=== PATIENT | female | born 1980 | race Caucasian/White ===

== ENCOUNTER 2017-03-05 04:52 | Inpatient (IN) | payer MEDICARE ==
[2017-03-05] VITALS (9 sets, daily range): BP systolic 105–136; BP diastolic 66–90; PULSE 103–142; RESP 16–20; TEMP 97.7–101.8; O2SAT 98–100
[~2017-03-05] VITALS: Ht 170.2 cm; Wt 58.3 kg
[2017-03-05] MEDS ORDERED: CHOL1CAP14 PO (05:24)
[2017-03-05] MEDS ORDERED: ASCO500C PO (05:24)
[2017-03-05] MEDS ORDERED: LOPE2CAP PO (05:24)
[2017-03-05] MEDS ORDERED: LEVO75TA3 PO (05:24)
[2017-03-05] MEDS ORDERED: HYDR-3580 PO (05:24)
[2017-03-05] MEDS ORDERED: CLON1TAB PO (05:24)
[2017-03-05] MEDS ORDERED: BACL20TA PO (05:24)
[2017-03-05] MEDS ORDERED: ONETAB13 PO (05:24)
[2017-03-05] MEDS ORDERED: TIZA4CAP3 PO (05:24)
[2017-03-05] MEDS ORDERED: ESCI20TA PO (05:24)
[2017-03-05] MEDS ORDERED: ONDANSETRON HCL 4 MG/2 ML VIAL IV ONE (05:30)
[2017-03-05] MEDS ORDERED: SODIUM CHLOR 0.9% 1000 ML INJ 1,000 ML IV ONE ×2 (05:30→06:15)
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
[2017-03-05 05:38] LABS: AUTOMATED NEUTROPHIL # 15.1 TH/MM3 (1.8-7.7); BASOPHIL % 0.2 % (0.0-2.0); EOSINOPHIL # 0.1 TH/MM3 (0-0.4); EOSINOPHIL % 0.9 % (0.0-4.0); HEMATOCRIT 46.2 % (35.0-46.0); HEMO FLAGS DIFF FINAL; LYMPHOCYTE # 0.9 TH/MM3 (1.0-4.8); MEAN CORPUSCULAR HEMOGLOBIN 29.9 PG (27.0-34.0); MEAN CORPUSCULAR HGB CONC 33.6 % (32.0-36.0); MONO % 5.1 % (0.0-8.0); NEUT % 88.8 % (16.0-70.0); PLATELET COUNT 396 TH/MM3 (150-450); RED CELL DISTRIBUTION WIDTH 14.4 % (11.6-17.2)
[2017-03-05 05:48] LABS: APTT (PATIENT) 25.9 SEC (24.3-30.1); INTERNATIONAL NORMALIZED RATIO 0.9 RATIO
--- NOTE | 2017-03-05 06:02 | RADRPT ---
EXAM DATE/TIME: 03/05/2017 05:54 [facility] COMPARISON: No previous studies available for comparison. INDICATIONS : Abdominal pain. MEDICAL HISTORY : None. SURGICAL HISTORY : None. ENCOUNTER: Initial ACUITY: 1 day PAIN SCORE: 0/10 LOCATION: Bilateral chest FINDINGS: A single AP semierect view of the chest was obtained and demonstrates no focal consolidation or effus ion. There are posterior spinal fixation rods in place. The heart size is at the upper limits of norm al. The bony thorax is intact with overlying electrocardiogram leads. CONCLUSION: No acute disease. Juan Lowry MD on March 05, 2017 at 5:59 Board Certified Radiologist. This report was verified electronically.
[2017-03-05 06:06] LABS: BACTERIA, URINE RARE /hpf; BLOOD, URINE NEG (NEG); COMMENT (UR) CULTURE INDICATED; CULTURE IF INDICATED CULTURE INDICATED; GLUCOSE,URINE NEG (NEG); HYALINE CAST, URINE 5 /lpf (RARE); KETONE, URINE TRACE mg/dL (NEG); MUCUS URINE FEW /lpf (OCC); NITRITE,URINE NEG (NEG); RENAL EPITHELIAL CELLS 3 /hpf; SQUAMOUS EPITHELIAL CELL URINE 2 /hpf (0-5); URINE COLOR YELLOW (YELLW/STRAW)
[2017-03-05] MEDS ORDERED: PIPERACIL-TAZO 3.375 GM PREMIX 50 ML IV ONE (06:15)
[2017-03-05] MEDS ORDERED: VANCOMYCIN INJ 1,000 MG in SODIUM CHLOR 0.9% 250 ML INJ 250 ML IV ONE (06:15)
[2017-03-05 06:39] LABS: ALT (GPT) 31 U/L (10-53); ANION GAP 7 MEQ/L (5-15); AST (GOT) 30 U/L (15-37); BICARBONATE 24.6 MEQ/L (21.0-32.0); BLOOD UREA NITROGEN 10 MG/DL (7-18); CHLORIDE 110 MEQ/L (98-107); GLOMERULAR FILTRATION RATE 118 ML/MIN (>89); MAGNESIUM 1.9 MG/DL (1.5-2.5); SODIUM (NA) 142 MEQ/L (136-145)
[2017-03-05 06:45] LABS: ALKALINE PHOSPHATASE 72 U/L (45-117)
[2017-03-05 06:47] LABS: TOTAL BILIRUBIN ADULT 0.6 MG/DL (0.2-1.0)
[2017-03-05] MEDS ORDERED: IOHEXOL 350 MG/ML 10 ML VIAL (for RAD DIAG) IV ONE (06:58)
--- NOTE | 2017-03-05 07:08 | PD ---
Physical Exam Date Seen by Provider: March 05, 2017 Time Seen by Provider: 07:06 Narrative The patient was signed out to me by Dr. Fischer. We're awaiting a CT result. This is a 37-year-old female with a history of partial quadriplegia, who presents here with 7+ episodes of vomiting. The patient has pyuria on exam. She been started on antibiotics and had cultures ordered. CT scan was ordered to rule out bowel findings. The patient has had a previous bowel obstruction with ischemic bowel secondary to the obstruction. Lactic acid and CT scan were pending at the time of signout. Data Data Last Documented VS Vital Signs Date Time Temp Pulse Resp B/P Pulse Ox O2 Delivery O2 Flow Rate FiO2 03/05/17 07:05 105 20 123/75 99 Room Air 03/05/17 04:54 97.7 Orders Complete Blood Count With Diff (03/05/17 05:20) Comprehensive Metabolic Panel (03/05/17 05:20) Prothrombin Time / Inr (Pt) (03/05/17 05:20) Act Partial Throm Time (Ptt) (03/05/17 05:20) Lipase (03/05/17 05:20) Urinalysis - C+S If Indicated (03/05/17 05:20) Magnesium (Mg) (03/05/17 05:20) Chest, Single Ap (03/05/17 05:20) Ct Abd/Pel W Iv Contrast(Rout) (03/05/17 05:20) Iv Access Insert/Monitor (03/05/17 05:20) Ecg Monitoring (03/05/17 05:20) Oximetry (03/05/17 05:20) Urinary Catheter Insert/Apply (03/05/17 05:20) Ed Urine Pregnancytest Poc (03/05/17 05:20) Sodium Chlor 0.9% 1000 Ml Inj (Ns 1000 M (03/05/17 05:30) Ondansetron Inj (Zofran Inj) (03/05/17 05:30) Urine Culture (03/05/17 05:15) Blood Culture (03/05/17 06:12) Sodium Chlor 0.9% 1000 Ml Inj (Ns 1000 M (03/05/17 06:15) Lactic Acid Sepsis Protocol (03/05/17 06:12) Piperacil-Tazo 3.375 Gm Premix (Zosyn 3. (03/05/17 06:15) Vancomycin Inj (Vancomycin Inj) (03/05/17 06:15) Iohexol 350 Inj (Omnipaque 350 Inj) (03/05/17 06:58) Hydromorphone Pf Inj (Dilaudid Pf Inj) (03/05/17 07:45) Admit Order (Ed Use Only) (03/05/17 08:53) Labs Laboratory Tests Test 03/05/17 03/05/17 03/05/17 03/05/17 05:15 05:25 06:15 06:20 Urine Color YELLOW Urine Turbidity HAZY Urine pH 5.0 Urine Specific [place] 1.027 Urine Protein TRACE mg/dL Urine Glucose (UA) NEG mg/dL Urine Ketones TRACE mg/dL Urine Occult Blood NEG Urine Nitrite NEG Urine Bilirubin NEG Urine Urobilinogen LESS THAN 2.0 MG/DL Urine Leukocyte Esterase LARGE Urine RBC 11 /hpf Urine WBC 60 /hpf Urine Squamous Epithelial 2 /hpf Cells Urine Renal Epithelial Cells 3 /hpf Urine Bacteria RARE /hpf Urine Hyaline Casts 5 /lpf Urine Mucus FEW /lpf Microscopic Urinalysis Comment CULTURE INDICATED White Blood Count 17.0 TH/MM3 Red Blood Count 5.20 MIL/MM3 Hemoglobin 15.6 GM/DL Hematocrit 46.2 % Mean Corpuscular Volume 89.0 FL Mean Corpuscular Hemoglobin 29.9 PG Mean Corpuscular Hemoglobin 33.6 % Concent Red Cell Distribution Width 14.4 % Platelet Count 396 TH/MM3 Mean Platelet Volume 8.2 FL Neutrophils (%) (Auto) 88.8 % Lymphocytes (%) (Auto) 5.0 % Monocytes (%) (Auto) 5.1 % Eosinophils (%) (Auto) 0.9 % Basophils (%) (Auto) 0.2 % Neutrophils # (Auto) 15.1 TH/MM3 Lymphocytes # (Auto) 0.9 TH/MM3 Monocytes # (Auto) 0.9 TH/MM3 Eosinophils # (Auto) 0.1 TH/MM3 Basophils # (Auto) 0.0 TH/MM3 CBC Comment DIFF FINAL Differential Comment Prothrombin Time 10.0 SEC Prothromb Time International 0.9 RATIO Ratio Activated Partial 25.9 SEC Thromboplast Time Sodium Level 142 MEQ/L Potassium Level 4.0 MEQ/L Chloride Level 110 MEQ/L Carbon Dioxide Level 24.6 MEQ/L Anion Gap 7 MEQ/L Blood Urea Nitrogen 10 MG/DL Creatinine 0.58 MG/DL Estimat Glomerular Filtration 118 ML/MIN Rate Random Glucose 93 MG/DL Calcium Level 8.1 MG/DL Magnesium Level 1.9 MG/DL Total Bilirubin 0.6 MG/DL Aspartate Amino Transf 30 U/L (AST/SGOT) Alanine Aminotransferase 31 U/L (ALT/SGPT) Alkaline Phosphatase 72 U/L Total Protein 8.5 GM/DL Albumin 3.6 GM/DL Lipase 100 U/L Lactic Acid Level 1.5 mmol/L [facility] Medical Record Reviewed: Yes Supervised Visit with PRINCE: No Differential Diagnosis Pyelonephritis versus bowel obstruction versus diverticulitis Narrative Course 37-year-old female signed out to me at [address] Fischer. We are waiting the lactic acid and CT result. Lactic acid comes back at 1.5. CT result shows no evidence of acute surgical pathology. There is nonspecific bowel gas patterns. This would be consistent with her paraplegia history. The patient does have an elevated white count of 17,000 with 89% segs. She has pyuria. Working diagnosis is sepsis secondary to pyelonephritis. She'll be admitted to the [facility] hospitalist service. I spoke with Dr. Arturo Mason, hospitalist, who agrees with the admission. Diagnosis Primary Impression: Sepsis Additional Impressions: Abdominal pain Qualified Code: R10.30 - Lower abdominal pain Urinary tract infection Qualified Code: T83.511A - Urinary tract infection associated with catheterization of urinary tract, unspecified indwelling urinary catheter type, initial encounter Vomiting Qualified Code: R11.2 - Non-intractable vomiting with nausea, unspecified vomiting type Admitting Information Admitting Physician Requests: Admit Anthony Morales MD March 05, 2017 07:08
[2017-03-05] MEDS ORDERED: HYDROmorphone HCL PF 1 MG/ML VIAL IVS ONE (07:45)
--- NOTE | 2017-03-05 08:17 | RADRPT ---
EXAM DATE/TIME: 03/05/2017 06:54 [facility] COMPARISON: No previous studies available for comparison. INDICATIONS : Diffuse abdominal pain with nausea and vomiting. IV CONTRAST: 95 cc Omnipaque 350 (iohexol) IV ORAL CONTRAST: No oral contrast ingested. RADIATION DOSE: 5.68 CTDIvol (mGy) MEDICAL HISTORY : Bowel obstruction. SURGICAL HISTORY : Splenectomy. Colon resection. ENCOUNTER: Initial ACUITY: 1 day PAIN SCALE: 3/10 LOCATION: Bilateral abdomen TECHNIQUE: Volumetric scanning of the abdomen and pelvis was performed. Using automated exposure control and adjustment of the mA and/or kV according to patient size, radiation dose was kept as low as reasonably achievable to obtain optimal diagnostic quality images. FINDINGS: Patient has history of previous spine surgery, splenectomy and colon resection. Lung bases are clear. There is deformity of the right chest wall with multiple fractures evident. Moderate pectus excavatum is noted. The liver is free of focal defects. Spleen is surgically absent. Small spenule apparently is presen t in the right upper quadrant. Pancreas and adrenals are unremarkable. There is symmetrical renal function. There is moderate distention of both large and small bowel. The surgical clips are seen in the right lower quadrant. Dilated bowel extends down to the rectum where there is actually air fluid level pr esent in the rectum. There is a Dillon catheter in place with the bladder partially decompressed. Uterus is prominent. Th ere is a small 2.5 cm right adnexal mass. The abdominal wall is intact. There is no free air identified. Several small nodules are seen just beneath the anterior abdominal wall on the left, largest measuring 1.4 cm. Not sure what this is, th is could be splenosis given its location and appearance. There is no other evidence for adenopathy. Review of bone windows reveals evidence for a previous significant thoracic spine. There is scoliosi s with significant degenerative changes in the lumbar spine. Deformity is seen about the pelvis with degenerative changes about the right SI joint. CONCLUSION: Multiple nonspecific findings. There is generalized ileus evident more so involving what remains of the colon and small bowel and air fluid extending all the way down to the rectum. I do not seen an abscess. I do not see free air. I do not see any significant findings suggesting e tiology of patient's abdominal pain. Sammy Read MD FACR on March 05, 2017 at 7:27 Board Certified Radiologist. This report was verified electronically.
[2017-03-05] MEDS ORDERED: MAGNESIUM HYDROXIDE SUSP 30 ML CUP PO PRN (09:00)
[2017-03-05] MEDS ORDERED: SENNOSIDES 8.6 MG TAB PO PRN (09:00)
[2017-03-05] MEDS ORDERED: SODIUM CHLORIDE 0.9% FLUSH 10 ML FLUSH IV FLUSH PRN (09:00)
[2017-03-05] MEDS ORDERED: NALOXONE HCL 0.4 MG/ML AMP IV PRN (09:00)
[2017-03-05] MEDS: SODIUM CHLORIDE 0.9% FLUSH 10 ML FLUSH IV FLUSH SCH ×2 (09:18→20:39)
[2017-03-05] MEDS: SODIUM CHLOR 0.45% 1000 ML INJ 1,000 ML IV SCH ×2 (09:19→23:08)
[2017-03-05] MEDS: BACLOFEN 20 MG TAB PO SCH ×3 (12:17→23:07)
[2017-03-05] MEDS: PIPERACIL-TAZO 3.375 GM PREMIX 50 ML IV SCH ×2 (12:17→17:22)
[2017-03-05] MEDS ORDERED: BISACODYL EC 5 MG TABEC PO ONE (16:45)
[2017-03-05] MEDS ORDERED: MAGNESIUM HYDROXIDE SUSP 30 ML CUP PO ONE (16:45)
[2017-03-05] MEDS: clonazePAM 1 MG TAB PO SCH (17:24)
[2017-03-05] MEDS: ENOXAPARIN SODIUM 40 MG/0.4 ML SYRINGE SQ SCH (17:25)
[2017-03-05] MEDS ORDERED: BISACODYL 10 MG SUPP RECTAL PRN (21:15)
[2017-03-05] MEDS ORDERED: LIDOCAINE HCL 5% OINT 37 GM TUBE TOPICAL PRN (21:15)
[2017-03-05] MEDS ORDERED: ACETAMINOPHEN 325 MG TAB PO PRN (21:15)
[2017-03-05] MEDS ORDERED: ACETAMINOPHEN/HYDROcodone 325 MG/7.5 MG TAB PO PRN (23:45)
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
[2017-03-06 00:12] VITALS: BP 111/71; PULSE 133; RESP 18; TEMP 101.6; O2SAT 98
[2017-03-06] MEDS: PIPERACIL-TAZO 3.375 GM PREMIX 50 ML IV SCH ×5 (00:30→23:54)
[2017-03-06 04:00] VITALS: BP 105/58; PULSE 111; RESP 18; TEMP 98.7; O2SAT 97
[2017-03-06] MEDS: LEVOTHYROXINE SODIUM 75 MCG TAB PO SCH (06:12)
[2017-03-06 07:37] LABS: AUTOMATED NEUTROPHIL # 3.3 TH/MM3 (1.8-7.7); BASOPHIL % 0.8 % (0.0-2.0); EOSINOPHIL # 0.1 TH/MM3 (0-0.4); HEMATOCRIT 39.8 % (35.0-46.0); HEMO FLAGS DIFF FINAL; LYMPH % 30.4 % (9.0-44.0); LYMPHOCYTE # 1.8 TH/MM3 (1.0-4.8); MEAN CELL VOLUME 88.7 FL (80.0-100.0); MEAN CORPUSCULAR HEMOGLOBIN 29.2 PG (27.0-34.0); MEAN CORPUSCULAR HGB CONC 32.9 % (32.0-36.0); MONO % 10.9 % (0.0-8.0); NEUT % 56.9 % (16.0-70.0); PLATELET COUNT 297 TH/MM3 (150-450); RED BLOOD COUNT 4.48 MIL/MM3 (4.00-5.30); RED CELL DISTRIBUTION WIDTH 14.1 % (11.6-17.2); WHITE BLOOD COUNT 5.9 TH/MM3 (4.0-11.0)
[2017-03-06 08:12] LABS: ALKALINE PHOSPHATASE 64 U/L (45-117); ALT (GPT) 34 U/L (10-53); ANION GAP 9 MEQ/L (5-15); AST (GOT) 28 U/L (15-37); BICARBONATE 24.6 MEQ/L (21.0-32.0); BLOOD UREA NITROGEN 8 MG/DL (7-18); CHLORIDE 105 MEQ/L (98-107); GLOMERULAR FILTRATION RATE 147 ML/MIN (>89); SODIUM (NA) 139 MEQ/L (136-145); TOTAL BILIRUBIN ADULT 0.7 MG/DL (0.2-1.0)
[2017-03-06 08:19] LABS: POTASSIUM 2.8 MEQ/L (3.5-5.1)
[2017-03-06] MEDS: SODIUM CHLORIDE 0.9% FLUSH 10 ML FLUSH IV FLUSH SCH ×2 (08:29→21:00)
[2017-03-06] MEDS: clonazePAM 1 MG TAB PO SCH ×3 (08:30→16:27)
[2017-03-06] MEDS: BACLOFEN 20 MG TAB PO SCH ×4 (08:30→21:53)
[2017-03-06] MEDS: ESCITALOPRAM OXALATE 20 MG TAB PO SCH (08:30)
[2017-03-06] MEDS: CHOLECALCIFEROL (VIT D3) 5000 UNIT CAP PO SCH (08:31)
[2017-03-06 08:45] VITALS: PULSE 115; RESP 20; TEMP 97.7; O2SAT 95
[2017-03-06] MEDS: SODIUM CHLOR 0.45% 1000 ML INJ 1,000 ML IV SCH ×2 (10:57→23:55)
[2017-03-06 12:06] VITALS: BP 100/64; PULSE 108; RESP 20; TEMP 98; O2SAT 97
[2017-03-06] MEDS ORDERED: POTASSIUM CHLORIDE 20 MEQ CONTROLLED RELEASE TAB PO ONE (13:15)
[2017-03-06] MEDS: POTASSIUM CHLOR 10 MEQ PREMIX 100 ML IV SCH ×2 (13:46→15:15)
[2017-03-06] MEDS: ENOXAPARIN SODIUM 40 MG/0.4 ML SYRINGE SQ SCH (16:28)
[2017-03-06 16:57] VITALS: BP 93/87; PULSE 90; RESP 20; TEMP 97.1; O2SAT 98
--- NOTE | 2017-03-06 19:45 | HHI.PR ---
Subjective Remarks Patient seen this morning around 11 AM. Says she is feeling all right. Reports abdominal pain much improved. Positive bowel movement. Discussed with mother, will need to continue antibiotics until cultures return. Objective Vital Signs Date Time Temp Pulse Resp B/P Pulse Ox O2 Delivery O2 Flow Rate FiO2 03/06/17 16:57 97.1 90 20 93/87 98 03/06/17 12:06 98.0 108 20 100/64 97 03/06/17 08:45 97.7 115 20 95 03/06/17 04:00 98.7 111 18 105/58 97 03/06/17 00:12 101.6 133 18 111/71 98 03/05/17 20:00 101.8 142 18 116/68 99 I/O 03/05/17 03/05/17 03/05/17 03/06/17 03/06/17 03/06/17 07:00 15:00 23:00 07:00 15:00 23:00 Intake Total 750 ml 360 ml 2266 ml Output Total 500 ml 700 ml 900 ml Balance -500 ml 50 ml -540 ml 2266 ml Intake Oral 750 ml 360 ml 360 ml IV Total 1906 ml Output Urine Total 500 ml 700 ml 900 ml # Bowel Movements 2 5 Result Diagram: 03/06/17 0636 03/06/1736 Objective Remarks GENERAL: patient lying in bed. Appears comfortable. SKIN: Warm and dry. HEAD: Normocephalic. EYES: No scleral icterus. No injection or drainage. NECK: Supple, trachea midline. No JVD. CARDIOVASCULAR: Regular rate and rhythm without murmurs, gallops, or rubs. RESPIRATORY: Breath sounds equal bilaterally. No accessory muscle use. GASTROINTESTINAL: Abdomen soft, non-tender, nondistended. positive bowel sounds. MUSCULOSKELETAL: No cyanosis, or edema. BACK: Nontender without obvious deformity. No CVA tenderness. A/P Assessment and Plan ===== 03/06/17 Still with fever 101.6, at midnight. We'll need to follow up urine cultures with gram-negative kiley. Continue broad-spectrum antibiotics for now Hypokalemia. Potassium 2.8. Replace. Monitor. //Sepsis. Leukocytosis. Tachycardia, fever, suspected UTI. -Lactate within normal limits -Blood cultures and urine culture pending -Tylenol when necessary fever -IV fluids. Continue broad-spectrum antibiotics. -Abdominal CT with no acute findings to explain pain or infection. The broad-spectrum antibiotics. Follow-up gram-negative rods in urine. //Constipation. As seen on CT abdomen. -Resolved after cathartics, with loose stools thereafter. //Hypothyroidism. Continue home medications Hypokalemia. Potassium 2.8. Replace. Monitor. //Chronic muscle spasm, spastic paresis, paraplegia. Continue home tizanidine, clonazepam, baclofen //Continue chronic esCitalopram. Patient denies history of depression. //Prophylaxis. Lovenox. Discharge Planning possibly discharge tomorrow if sensitivities come back on urine Arturo Mason MD March 06, 2017 19:45
[2017-03-06 20:00] VITALS: BP 107/73; PULSE 84; RESP 18; TEMP 98.6; O2SAT 100
[2017-03-07] VITALS: BP 103/72; PULSE 78; RESP 18; TEMP 98.4; O2SAT 100
[2017-03-07 04:00] VITALS: BP 108/63; PULSE 84; RESP 18; TEMP 98; O2SAT 98
[2017-03-07] MEDS: PIPERACIL-TAZO 3.375 GM PREMIX 50 ML IV SCH ×2 (06:39→12:03)
[2017-03-07] MEDS: LEVOTHYROXINE SODIUM 75 MCG TAB PO SCH (06:39)
[2017-03-07] MEDS: ESCITALOPRAM OXALATE 20 MG TAB PO SCH (08:00)
[2017-03-07] MEDS: clonazePAM 1 MG TAB PO SCH ×2 (08:00→12:03)
[2017-03-07] MEDS: CHOLECALCIFEROL (VIT D3) 5000 UNIT CAP PO SCH (08:00)
[2017-03-07] MEDS: BACLOFEN 20 MG TAB PO SCH ×2 (08:04→12:04)
[2017-03-07] MEDS: SODIUM CHLORIDE 0.9% FLUSH 10 ML FLUSH IV FLUSH SCH (08:05)
[2017-03-07 08:07] LABS: AUTOMATED NEUTROPHIL # 4.5 TH/MM3 (1.8-7.7); BASOPHIL % 0.5 % (0.0-2.0); EOSINOPHIL # 0.3 TH/MM3 (0-0.4); EOSINOPHIL % 3.6 % (0.0-4.0); HEMATOCRIT 39.7 % (35.0-46.0); HEMO FLAGS DIFF FINAL; LYMPH % 30.6 % (9.0-44.0); LYMPHOCYTE # 2.5 TH/MM3 (1.0-4.8); MEAN CELL VOLUME 88.2 FL (80.0-100.0); MEAN CORPUSCULAR HEMOGLOBIN 29.5 PG (27.0-34.0); MEAN CORPUSCULAR HGB CONC 33.5 % (32.0-36.0); MONO % 10.6 % (0.0-8.0); NEUT % 54.7 % (16.0-70.0); PLATELET COUNT 297 TH/MM3 (150-450); WHITE BLOOD COUNT 8.2 TH/MM3 (4.0-11.0)
[2017-03-07 08:31] LABS: BICARBONATE 23.4 MEQ/L (21.0-32.0); MAGNESIUM 2.3 MG/DL (1.5-2.5); POTASSIUM 3.1 MEQ/L (3.5-5.1)
[2017-03-07 08:33] VITALS: BP 123/77; PULSE 91; RESP 16; TEMP 98.2; O2SAT 98
[2017-03-07 11:43] VITALS: BP 97/66; PULSE 74; RESP 16; TEMP 98.2; O2SAT 98
[2017-03-07] MEDS ORDERED: SULF1TAB23 PO (11:56)
[2017-03-07] MEDS ORDERED: POTASSIUM CHLORIDE 10 MEQ CONTROLLED RELEASE TAB PO ONE (12:15)
[2017-03-07] MEDS ORDERED: POTASSIUM PHOSPHATE/SODIUM PHOSPHATE 250 MG TAB PO ONE (12:15)
[2017-03-07] MEDS: SODIUM CHLOR 0.45% 1000 ML INJ 1,000 ML IV SCH (14:14)
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
== END 2017-03-07 14:54 | disposition home or self-care (01) | DRG 871 ==
LOC: NEPC 04:52 → NEDA 08:55 → N05A 10:09
PROVIDERS: ADMIT Internal Medicine; ATTEND Internal Medicine
PROC: 0T9B70Z Drainage of Bladder with Drainage Device, Via Natural or Artificial Opening (ICD-10-PCS; principal; 2017-03-05)
DX: A41.9 Sepsis, unspecified organism (principal); G82.50 Quadriplegia, unspecified; N39.0 Urinary tract infection, site not specified; Z87.820 Personal history of traumatic brain injury; E03.9 Hypothyroidism, unspecified; R11.2 Nausea with vomiting, unspecified; M62.838 Other muscle spasm; K59.00 Constipation, unspecified; E87.6 Hypokalemia; Z86.718 Personal history of other venous thrombosis and embolism; Z90.81 Acquired absence of spleen
CPT/HCPCS: 51702; 71010; 74177; 80053; 80069; 81001; 83605; 83690; 83735; 84703; 85025; 85610; 85730; 87040; 87077; 87086; 87186; 96361; 96365; 96375; J1170; J1650; J2405; J2543; J3370; J3480; J7030; J7050; Q9967